=== PATIENT | female | born 1970 | race Caucasian/White ===

== ENCOUNTER 2023-12-30 07:10 | Day surgery (SDC) | payer BC ==
[2023-12-25 09:20] VITALS: BP 121/82
[~2023-12-30] VITALS: Ht 167.6 cm; Wt 83.6 kg
[~2023-12-30 07:10] MED LIST: ESTRACE42.5 GM VAGINAL; IBLOOD GLUCOSE TEST STRIP 1 EA TEST VI PRN; LACTATED RINGER'S 1,000 ML IV SCH; LIDOCAINE HCL 1% 5 ML SDV INJ ONE
[2023-12-30 07:22] VITALS: BP 127/74
[2023-12-30] MEDS ORDERED: DEXAMETHASONE SOD PHOS 4 MG/ML VIAL ONE (07:50)
[2023-12-30] MEDS ORDERED: METOCLOPRAMIDE HCL 10 MG/2 ML SDV ONE (07:50)
[2023-12-30] MEDS ORDERED: ondansetron HCL 4 MG/2 ML VIAL ONE (07:50)
[2023-12-30] MEDS ORDERED: propofoL 200 MG/20 ML VIAL ONE (07:50)
[2023-12-30] MEDS ORDERED: KETOROLAC TROMETHAMINE 30 MG/ML VIAL ONE (07:50)
[2023-12-30] MEDS ORDERED: LACTATED RINGER'S 1,000 ML IV ONE (07:50)
[2023-12-30] MEDS ORDERED: fentaNYL citrate 100 MCG/2 ML VIAL ONE (07:50)
[2023-12-30] MEDS ORDERED: MIDAZOLAM HCL 2 MG/2 ML VIAL ONE (07:51)
[2023-12-30] MEDS ORDERED: FAMOTIDINE 20 MG/ 2 ML VIAL ONE (07:51)
--- NOTE | 2023-12-30 09:26 | NUR ---
12/30/23 0926 Amandeep,Divine 0908 PT ARRIVED TO PACU ON 6L VIA MASK AND ORAL AIRWAY IN PLACE. RESP EVEN AND SHALLOW. JAW THRUST USED TO MAINTAIN AIRWAY. 0915 PT WOKE TO TACTILE STIMULI AND ORAL AIRWAY REMOVED. PT VERY DROWSY AND ENCOURAGED TO DEEP BREATHE AND IS REORIENTED TO PACU. PT DENIES PAIN AND NAUSEA. 0925 PT AWAKES OFF AND ON, O2 SAT LOW 90S WHEN ASLEEP AND PT ASKED FOR COFFEE, PLAN OF CARE DISCUSSED.
[2023-12-30] MEDS ORDERED: SIMETHICONE 125 MG TABLET CHEWABLE PO PRN (09:30)
[2023-12-30] MEDS ORDERED: HYDROCODONE/ACETA 5/325 TAB PO PRN (09:30)
[2023-12-30] MEDS ORDERED: MAGNESIUM HYDROXIDE/AL HYDROX 30 ML CUP PO PRN (09:30)
[2023-12-30] MEDS ORDERED: METOCLOPRAMIDE HCL 10 MG/2 ML SDV IV PRN (09:30)
[2023-12-30] MEDS ORDERED: FAMOTIDINE 20 MG/ 2 ML VIAL IV PRN (09:30)
[2023-12-30] MEDS ORDERED: ondansetron HCL 4 MG/2 ML VIAL IV PRN (09:30)
[2023-12-30 09:39] VITALS: BP 124/65
[2023-12-30 10:40] VITALS: BP 115/71
--- NOTE | 2023-12-30 10:56 | NUR ---
LE 0937-PATIENT BACK TO ROOM FROM PACU ON . RECEIVED REPORT FROM ROBERTO CARLOS PARISI. PATIENT IS DROWSY, LAYING IN BED WITH EYES CLOSED. RESP EVEN AND UNLABORED. PATIENT DENIES PAIN AND NAUSEA. PROVIDED PATIENT WITH WATER. NO OTHER NEEDS AT THIS TIME. AT BEDSIDE. CALL LIGHT WITHIN REACH.
--- NOTE | 2023-12-30 10:59 | NUR ---
RASHEL 1025-PATIENT FEELS "A LITTLE SHAKY". PROVIDED PATIENT WITH CRACKERS AND MORE WATER. CALL LIGHT WITHIN REACH.
--- NOTE | 2023-12-30 11:00 | NUR ---
LE 1040-PATIENT LAYING IN BED WITH EYES CLOSED. RESP EVEN AND UNLABORED. PATIENT FEELING BETTER. DENIES PAIN AND NAUSEA. LE 1045-PATIENT AMBULATES TO RESTROOM WITH 1 RN ASSIST. GAIT STEADY AND TOLERATED WELL. PATIENT VOIDS 450ML OF PINK TINGED URINE. LE 1050-PATIENT AMBULATES BACK TO ROOM. PATIENT LAYING IN BED. CALL LIGHT WITHIN REACH. AT BEDSIDE.
[2023-12-30 11:39] VITALS: BP 141/76
--- NOTE | 2023-12-30 12:42 | NUR ---
LE 1120- IN PATIENT'S ROOM. LE 1125-PATIENT GETTING DRESSED. IN ROOM TO HELP. LE 1135-WENT OVER DISCHARGE INSTRUCTIONS WITH PATIENT AND HER . ALL QUESTIONS ANSWERED. WENT TO GET THE CAR. LE 1140-PATIENT AMBULATES TO WHEELCHAIR AND RIDE GIVEN TO FRONT OF HOSPITAL WHERE WAS WAITING WITH THE CAR.
[2023-12-30] MEDS ORDERED: SIMETHICONE 125 MG TABLET CHEWABLE PO SCH (13:00)
--- NOTE | 2024-01-01 07:56 | OR ---
[facility] [address] [place] [id number] Signed DATE OF OPERATION: 12/30/2023 SURGEON: Karthik Monsalve DO PREOPERATIVE DIAGNOSES: 1. Postmenopausal bleeding. 2. Cervical polyp. 3. Unable to tolerate in office procedure. POSTOPERATIVE DIAGNOSES: 1. Postmenopausal bleeding. 2. Cervical polyp. 3. Unable to tolerate in office procedure. PROCEDURE PERFORMED: Hysteroscopy, D and C, polypectomy. UNDERWRITING SUPPORT MANAGER: None. ANESTHESIA: MAC. ESTIMATED BLOOD LOSS: 5 mL. FLUID DEFICIT: 100 mL. COMPLICATIONS: None. SPECIMEN: Endocervical polyp and endometrial curettings. FINDINGS: Endocervical polyp noted at the cervical os with otherwise normal uterine cavity with very thin endometrium. INDICATIONS: Electronically Signed By: KARTHIK MONSALVE DO (JD) 01/01/24 0756 PATIENT NAME: ALINE LOYD OPERATIVE REPORT DATE OF : 72 REPORT #: [id number] PHYSICIAN: KARTHIK MONSALVE DO (JD) PCP: NO PRIMARY CARE PHYSICIAN REPORT IS CONFIDENTIAL AND NOT TO BE RELEASED WITHOUT AUTHORIZATION [facility] [address] [place] [id number] Signed Ms. Loyd is a very pleasant 53-year-old postmenopausal female with postmenopausal bleeding and cervical polyp noted at the time of annual exam. Recommended hysteroscopy, D and C, and polypectomy. This was attempted to be performed in the office but was unable to be successfully completed due to the patient intolerance. Decision was made to proceed with procedure in the OR. Risks, benefits, and alternatives were discussed in detail with the patient. The patient understands and wishes to proceed. TECHNIQUE: The patient was taken to the OR where a time-out was performed to confirm correct patient and correct procedure. MAC anesthesia was adequately established. The patient was prepped and draped in the dorsal lithotomy position with her feet in Yellofin stirrups. ICPs were on and running. No preoperative antibiotics or heparin was indicated. The bladder was drained. A weighted speculum was placed in the vagina. The anterior lip of the cervix was grasped with a single-tooth tenaculum. The cervix was noted to have a polyp protruding through the external os. The cervix was gently dilated using Hegar dilators, which did disrupt the polyp. This was grasped with pickups and sent to pathology for further evaluation. The cervix was then dilated to #7 Hegar dilator and an operative hysteroscope was then placed in the cervical os and advanced under direct visualization into the uterine cavity. Normal uterine cavity with bilateral tubal ostia appreciated. Thin inactive appearing endometrium was noted. MyoSure Lite device was selected and introduced into the cavity through the hysteroscope and circumferential curettage was performed. Sampling the endometrium in a 360 degree fashion. The hysteroscope was slowly withdrawn and the stalk of the polyp was noted emerging from the midportion of the endocervical canal. The stalk was then resected using the MyoSure Lite device. The remainder of the endocervical canal was normal and the hysteroscope was withdrawn. The single-tooth tenaculum was removed and the tenaculum site was noted to be hemostatic. The patient was then taken to PACU in good and stable condition. Sponge, needle, and instrument count was correct x2 at the end of procedure. Karthik Monsalve, DO JDW/MODL /[id number] Electronically Signed By: KARTHIK MONSALVE (JD), DO 01/01/24 0756 PATIENT NAME: ALINE LOYD OPERATIVE REPORT DATE OF : 72 REPORT #: [id number] PHYSICIAN: KARTHIK MONSALVE) PCP: NO PRIMARY CARE PHYSICIAN REPORT IS CONFIDENTIAL AND NOT TO BE RELEASED WITHOUT AUTHORIZATION [facility] [address] [facility] [place] [id number] Signed Copies: ~ Electronically Signed By: KARTHIK MONSALVE (JD), DO 01/01/24 0756 PATIENT NAME: ALINE LOYD OPERATIVE REPORT DATE OF : 72 REPORT #: [id number] PHYSICIAN: KARTHIK MONSALVE (AMANDA) DO PCP: NO PRIMARY CARE PHYSICIAN REPORT IS CONFIDENTIAL AND NOT TO BE RELEASED WITHOUT AUTHORIZATION
--- NOTE | 2024-01-01 16:50 | PATH ---
[facility] [address] [facility], [place] [address] Signed SPECIMEN(S): A ENDOMETRIAL CURETTINGS AND POLYP SPECIMEN SOURCE: A. ENDOMETRIAL CURETTINGS AND POLYP CLINICAL HISTORY: Cervical polyp FINAL PATHOLOGIC DIAGNOSIS: Endometrial curettings and polyp: - Benign proliferative endometrium approaching simple hyperplasia with focal polypoid features. - Negative for atypia. - Benign endocervical polyp. - Fragments of benign endocervical mucosa. JVR:[facility] MICROSCOPIC EXAMINATION: Histologic sections of all submitted blocks are examined by light microscopy. These findings, together with the gross examination, support the pathologic diagnosis. GROSS DESCRIPTION: The specimen, labeled and designated "Evert, endometrial curettings and polyp," is received in formalin and consists of multiple fragments red-brown to roque soft tissue (2.3 x 1.9 x 0.4 cm in aggregate). The specimen is submitted entirely in cassette (A1). VB (under the direct supervision of a pathologist) The Gross Description was prepared using a voice recognition system. The report was reviewed for accuracy; however, sound-alike word errors, addition and/or deletions may occur. If there is any question about this report, please contact Client Services. PERFORMING LABORATORY: Technical component was performed by [facility], [address] [place] [id number] (CLIA# [id number]). Professional interpretation was performed by [facility] - [facility], [address] [place] [id number] (CLIA#: [id number]). Diagnostician: Amari Padron MD Pathologist PATIENT NAME: ALINE MCKEON PATHOLOGY DATE OF : 72 REPORT #: [id number] PHYSICIAN: [facility] PCP: NO PRIMARY CARE PHYSICIAN REPORT IS CONFIDENTIAL AND NOT TO BE RELEASED WITHOUT AUTHORIZATION [address] [place], [place] [address] Signed Electronically Signed 01/01/2024 Copies: ~ PATIENT NAME: ALINE MCKEON PATHOLOGY DATE OF : 72 REPORT #: [id number] PHYSICIAN: [facility] PCP: NO PRIMARY CARE PHYSICIAN REPORT IS CONFIDENTIAL AND NOT TO BE RELEASED WITHOUT AUTHORIZATION
== END 2023-12-30 11:40 | disposition home or self-care (01) ==
LOC: OPS 07:10 → DS 07:10 → OPS 09:30 → DS 11:30 → OPS 11:30
PROVIDERS: ATTEND Obstetrics & Gynecology
PROC: 0UBC8ZZ Excision of Cervix, Via Natural or Artificial Opening Endoscopic (ICD-10-PCS; principal; 2023-12-30 09:30)
DX: N84.1 Polyp of cervix uteri (principal); N95.0 Postmenopausal bleeding; N85.01 Benign endometrial hyperplasia
CPT/HCPCS: 00952; J1100; J1885; J2250; J2405; J2704; J2765; J3010; J7121